=== PATIENT | female | born 1995 | race African-American/Black ===

== ENCOUNTER 2023-04-16 15:39 | Emergency (ER) | payer OTHER ==
[2023-04-16 15:55] VITALS: BP 110/73; PULSE 77; RESP 18; TEMP 98; BMI 22.8
[2023-04-16 17:18] LABS: BASO % 2.8 % (0-2.0); EOS % 2.4 % (0-4.5); HEMATOCRIT 36.8 % (32.4-45.2); MCHC 32.7 g/dl (32.0-36.0); MEAN CELL VOLUME 82.6 fl (80-96); MEAN PLT VOLUME 9.4 fl (7.5-11.1); MONO % 11.2 % (3.8-10.2); NEUT % 41.6 % (42.8-82.8); PLATELET COUNT 309 10^3/uL (134-434); RBC 4.46 M/mm3 (3.60-5.2); RDW 13.6 % (11.6-15.6); WHITE BLOOD COUNT 3.9 K/mm3 (4.0-10.0)
[2023-04-16 17:46] LABS: POTASSIUM 4.2 mmol/L (3.5-5.1)
[2023-04-16 17:48] LABS: ALBUMIN 3.8 g/dl (3.4-5.0); CALCIUM 9.3 mg/dL (8.5-10.1)
[2023-04-16 17:52] LABS: CREATININE 0.8 mg/dL (0.55-1.3)
[2023-04-16 17:53] LABS: BILIRUBIN,TOTAL 0.2 mg/dL (0.2-1); TOT PROT 8.3 g/dl (6.4-8.2)
[2023-04-16 18:32] LABS: HIV INTERPRETATION NEGATIVE (NEGATIVE)
[2023-04-16] MEDS ORDERED: RALTEGRAVIR POTASSIUM 400 MG TAB PO ONE (18:32)
[2023-04-16] MEDS ORDERED: HIV POST EXPOSURE PROPHYLAXIS KIT NR ONE (18:37)
[2023-04-16] MEDS ORDERED: HIV POST EXPOSURE PROPHYLAXIS KIT PO ONE (18:38)
[2023-04-17] MEDS ORDERED: EMTRICITABINE 200MG/TENOFOVIR 300MG PO ONE (18:33)
== END 2023-04-16 19:00 | disposition home or self-care (01) ==
LOC: EDBD 15:39 → JERFT 15:39
DX: S61.239A Puncture wound without foreign body of unspecified finger without damage to nail, initial encounter (principal); W46.0XXA Contact with hypodermic needle, initial encounter
CPT/HCPCS: 36415; 80053; 84703; 85025; 86803; 87389; 99283-25